=== PATIENT | female | born 1955 | race Caucasian/White ===

== ENCOUNTER 2017-03-03 10:43 | Outpatient (CLI) | payer OTHER | END 2017-03-03 10:44 | disposition home or self-care (01) | LOC: SC 10:43 | PROVIDERS: ATTEND Nurse Practitioner Family | DX: G47.33 Obstructive sleep apnea (adult) (pediatric) (principal) | CPT/HCPCS: 99212; 99214 ==

== ENCOUNTER 2018-03-18 11:06 | Outpatient (CLI) | payer OTHER, MEDICARE | END 2018-03-18 11:07 | disposition home or self-care (01) | LOC: SC 11:06 | PROVIDERS: ATTEND Nurse Practitioner Family | DX: G47.33 Obstructive sleep apnea (adult) (pediatric) (principal) | CPT/HCPCS: 99212; 99213 ==

== ENCOUNTER 2019-04-11 12:49 | Outpatient (CLI) | payer MEDICARE, OTHER ==
[2019-04-11 14:03] VITALS: BP 104/76
--- NOTE | 2019-04-11 14:03 | SLEEP CARE CONSULTATION ---
Information from patient questionnaire entered by Sandra Negrete. I have reviewed and concur with the information entered by Sandra Negrete. This document represents the service I personally performed and the decisions made by me, Tiffany Philip, RN, MSN, [employer]. - History of Present Illness HPI: KRISTIE DE JESUS was diagnosed to have moderate, AHI 22.1, obstructive sleep apnea-hypopnea syndrome and returned today for CPAP therapy annual follow-up. She has joined [employer] online in December 2018 and lost 19 pounds since last seen. She is pleased with program so far and the scanning charissa that allows her to see points of food to make better choices for intake. Since she went on Medicare, she has not been able to get supplies from [facility]. She spoke to someone there and clarified that she had seen both me and her PCP. Her spouse who also went on Medicare had been seen as well. She was told that they would contact her PCP for authorization and never heard since last July when her spouse went on Medicare and no longer had [employer] insurance. She has had reserve supplies so did not contact this office until annual due. Changes in Medical history since last seen is she has hurt her low back and went to physical therapy. She is now seeing an accupuncturarist since last fall with significant reduction of pain. She also has seen a hunter trapper in consultation for elevated creatinine, no current treatment. Equipment obtained from: [employer] (no supplies since last fall or contact. Since told they were sending a request for referral from PCP.) Mask style: Nasal Backup mask available: Yes Last cushion change: a couple of weeks ago - Compliance Data Reviewed with Patient Average duration of nightly device use: 8 hours Compliance rate % (4+hrs/night over past 30 nights): 99 Current pressure setting (cmH2O): 7 Humidity settin Heated hose settin Average residual AHI: 2.2 - Subjective Patient concerns: reports: condensation in mask/hose (resolved with turning off humiidty There is no heated hose and declines using one due to heat). denies: aerophagia, mask discomfort, air blowing in eyes, mask leak noise, nasal congestion, dry mouth, nose, throat, epistaxis Observed to snore while using device: No (snores if naps without CPAP) Current pressure setting perceived as: comfortable On therapy, patient: reports: sleeping better, awakening more refreshed, being more awake and alert during the day, more rested overall. denies: drowsiness while driving (She does not drive.) Initial [place] Sleepiness Scale score: 5 Current [place] Sleepiness Scale score: 2 - Review of Systems Review of systems same as previous: Yes Cardiovascular: reports: high blood pressure, palpitations, leg or foot swelling. denies: chest pain, irregular heart rate or pulse, have to sleep sitting up, other Respiratory: denies: shortness of breath, wheeze, sputum production, chronic cough, other Gastrointestinal: reports: heartburn. denies: difficulty swallowing, nausea, vomitting, diarrhea, abdominal pain, other Urinary: reports: frequency. denies: incontinence, urgency, impotence, other Neurological: denies: headaches, seizure, head trauma, disorientation, speech dysfunction, gait or balance problems, fainting or unconsciousness, other Psychiatric: reports: claustrophobia. denies: Attention Deficit Hyperactivity, anxiety, depression, mood disorder, other Ear/Nose/Throat: reports: tonsillectomy, wisdom teeth removed. denies: nasal congestion, sinus problems, nose bleeds, dry mouth/throat, hoarseness, injury to nose, other Endocrine: reports: too hot or cold, increased appetite. denies: thyroid disease, history of goiter, sluggishness, excessive thirst, increased urination, unexplained weakness, other Musculoskeletal: reports: joint pain, neck pain, back pain, joint swelling, muscle pain or cramping, mobility problems, other - Allergies/Medications Allopurinol 200mg tab one twice daily Folic acid 1 tablet daily Colchicine 0.6mg tab one twice daily prn flare ups Aspirin 81mg tab one daily Lyrica 50mg tab one am and two pm Lisinopril 10mg tab one daily HCTZ 12.5mg tab one daily Vitamin C 500mg tab one daily Vitamin E 200mg cap one daily CoQ10 100mg cap one daily Caltrate Plus D 1200mg tab one daily Apple Cider Vinegar 450mg cap one daily No known drug allergies: Yes (codeine - severe nausea / vomiting) Allergies and home medications reviewed: Yes - Physical Examination Blood Pressure: 104/76 Heart Rate: 76 O2 Saturation: 97 Height: 5 ft Weight (kg): 157.85 kg (lost 19 pounds) Body Mass Index: 67.9 BMI Classification: Class 3 - Impression 1. Obstructive Sleep Apnea-Hypopnea Syndrome, moderate , with good treatment compliance and good apnea control. On CPAP therapy, there is improved sleep quality and continues to feel more rested overall. Since she has lost 19 pounds since last seen. She was informed how continued weight loss could reduce her CPAP pressure requirements. I offered to change her to autoCPAP but she declined as very comfortable with current pressure and losing weight slowly. Thus I informed her of symptoms to report to adjust CPAP pressure. For her supply concerns, it is unclear why [facility] is not giving her supplies. The wrong supplies were also sent. Patient states she actually went to [facility] in [facility] to return the incorrect filter and to obtain correct filter but [facility] wanted to charge them even with return of incorrect filter. I signed off her prescription this past September. Thus I will have my behavioral health care coordinator contact [facility] to clarify why patient is unable to obtain supplies. I will also write an update CPAP order prescription. I also gave her a copy of the supply replacement list to answer her questions in regard to Medicare coverage. I also answered questions about cleaning her equipment and cleaning devices. Patient advised to resume humidity if any oral /nasal dryness. Patient's apnea severity and rationale for treatment to reduce apnea, improve sleep quality and reduce cardiovascular and cerebrovascular events was reviewed. I also reviewed the benefit of consistent device use of CPAP for hypertension and restless leg syndrome. I also discussed how her weight loss can reduce blood pressure and since low normal today, she is advised to monitor at home and follow up with PCP for guidelines as she loses more weight he may want to modify her medication. - Plan Plan: Continue nasal CPAP pressure at 7 cm H2O. Notify me if snoring with the mask or feeling that the pressure is too much or too little. Continue to lose weight. Contact [facility] to clarify supply concerns Update supplies Monitor blood pressure and follow up with PCP for guidelines as discussed. Return for follow-up in one year, or sooner if concerns arise. I spent 100% of this 45 minute visit face to face with the patient with greater than 50% of this was spent time counseling the patient and coordination of care.
== END 2019-04-11 12:50 | disposition home or self-care (01) ==
LOC: SC 12:49
PROVIDERS: ATTEND Nurse Practitioner Family
DX: G47.33 Obstructive sleep apnea (adult) (pediatric) (principal)
CPT/HCPCS: 99215; G0463; 99212

== ENCOUNTER 2022-03-06 12:48 | Outpatient (CLI) | payer MEDICARE, OTHER ==
[2022-03-06 13:34] VITALS: BP 114/72
--- NOTE | 2022-03-06 13:34 | SLEEP CARE CONSULTATION ---
Information from patient questionnaire entered by Stacy Trujillo MA. I have reviewed and concur with the information entered by Stacy Trujillo MA. This document represents the service I personally performed and the decisions made by , Sarah Rutledge ARNP. History of Present Illness Service Date and Time: 03/06/2022 1248 Previous diagnosis: Moderate, Obstructive Sleep Apnea-Hypopnea Syndrome AHI: 22.1 Reason for follow up: annual (LAST SEEN 04/2019, NEVER RECVD STUDY RESULTS, ) Accompanied by: Spouse Equipment type: CPAP Equipment obtained from: [employer] (getting supplies as needed) Mask style: Nasal Mask brand: Respironics (Dreamwear) Backup mask available: Yes (old mask) Last cushion change: 3 weeks ago Prior sleep studies: Yes HPI additional information: KRISTIE DE JESUS was diagnosed to have moderate, AHI 22.1, obstructive sleep apnea-hypopnea syndrome and returned today with spouse for CPAP therapy annual follow-up. CPAP Compliance Data - Data Reviewed with Patient Average duration of nightly device use: 8 hours 45 minutes Compliance rate %: 100 (180 days; 180/180 days used) Current pressure setting (cmH2O): 7 Average residual AHI: 5.7 Central apnea: 0.0 Obstructive apnea: 3.6 Average large leak: 21.3 L/min Subjective Patient concerns: denies: aerophagia, mask discomfort, air blowing in eyes, mask leak noise, condensation in mask/hose, nasal congestion, dry mouth, nose, throat, epistaxis, other Observed to snore while using device: No Current pressure setting perceived as: comfortable On therapy, patient: reports: sleeping better, awakening more refreshed, being more awake and alert during the day, more rested overall. denies: drowsiness while driving Current [place] Sleepiness Scale score: 5 Allergies and Home Medications Home medication list reviewed: Yes (Ropinerole) Review of Systems Review of systems same as previous: No (Restless Legs Syndrome) Physical Exam Vital signs obtained and entered by: VCIKY ALICEA Blood Pressure: 114/72 (RIGHT,) Cuff size: wrist Heart Rate: 63 O2 Saturation: 93 Height: 5 ft Weight: 369 lb (CLOTHES) Body Mass Index: 72.1 BMI Classification: Morbidly Obese Impression and Plan 1. Obstructive Sleep Apnea-Hypopnea Syndrome, moderate, with excellent treatment compliance and fair apnea control with minimal elevation of residual AHI. On CPAP therapy, the patient has better sleep quality and is more rested overall. The patients pressure will be changed to CPAP 8 cmH20 for elevation of residual AHI. Patient advised to contact me if pressure change is uncomfortable so that it can be adjusted. Goals for apnea control discussed. The patients CPAP is over 5 years old and of reasonable use. In addition, it is telling her the motor has exceeded its life and needs to be replaced. Thus, the CPAP will be updated. A DWO prescription will be made. Compliance guidelines for new device and follow up discussed. Patient's apnea severity and rationale for treatment to reduce apnea, improve sleep quality and reduce cardiovascular and cerebrovascular events was reviewed. I also reviewed the benefit of consistent device use of CPAP for hypertension and restless legs syndrome. 2. Obesity, unspecified. Currently patients BMI is 72.1. Obesity increases the risk of apnea, CPAP pressure requirements and overall health risks especially cardiovascular and diabetes. Thus patient is advised to[ continue to try to] lose weight. Weight loss can be done with reducing portion size, reducing refined foods and balancing content with vegetables, fruit and whole grain foods. In addition, patient encouraged to get regular exercise. * Update device * Update supplies * Change CPAP pressure to 8 cmH2O * Notify me if snoring with mask or feeling that the pressure is too much or too little * Attempt to lose weight * Call this office if any problems using CPAP * Return for follow up once month after obtaining new, or sooner if concerns arise Counseling Topics: Spare mask, Weight loss health impact Visit Type: In Office Other Participants: Spouse/Significant Other Time Spent with Patient (minutes): 23 Provider Statement: I spent 100% of the Face to Face Visit with the patient with greater than 50% spent counseling the patient and coordination of care.
== END 2022-03-06 12:49 | disposition home or self-care (01) ==
LOC: SC 12:48
PROVIDERS: ATTEND Nurse Practitioner Family
DX: G47.33 Obstructive sleep apnea (adult) (pediatric) (principal); E66.01 Morbid (severe) obesity due to excess calories; Z68.45 Body mass index [BMI] 70 or greater, adult
CPT/HCPCS: 99213; G0463; 99212